=== PATIENT | male | born 1990 | race Caucasian/White ===

== ENCOUNTER → 2021-08-19 16:19 | Outpatient (BNVA) | payer MEDICAID, SELFPAY | PROVIDERS: PCP Nurse Practitioner Family; Visit Provider Nurse Practitioner Family | DX: S99.922A Unspecified injury of left foot, initial encounter (principal) | CPT/HCPCS: 73630 ==

== ENCOUNTER 2021-08-23 14:59 | Outpatient (CLI) | payer MEDICAID, SELFPAY | END 2021-08-23 15:00 | disposition home or self-care (01) | LOC: SPT 15:00 | PROVIDERS: PCP Nurse Practitioner Family; Visit Provider Podiatrist Foot & Ankle Surgery | DX: Z46.89 Encounter for fitting and adjustment of other specified devices (principal); S92.24 Fracture of medial cuneiform; X58.XXXS Exposure to other specified factors, sequela | CPT/HCPCS: L4361 ==

== ENCOUNTER 2021-08-26 14:59 | Outpatient (CLI) | payer MEDICAID, SELFPAY ==
--- NOTE | 2021-08-26 15:30 | CT_ITS ---
WS: [id number] NONCONTRAST CT LEFT FOOT TECHNIQUE: Noncontrast CT left foot with coronal and sagittal reformatted images. CLINICAL INFORMATION: FOOT FRACTURE COMPARISON: August 19, 2021 DLP: 759.[address] scans at [facility] use at least one of these dose optimization techniques: automated e xposure control; mA and/or kV adjustment per patient size (includes targeted exams where dose is matc hed to clinical indication); or iterative reconstruction. FINDINGS: Normal ankle mortise. Normal medial and lateral malleolus. Normal talar dome. Calcaneus is normal in appearance. Normal navicular. Normal cuboid. Base of the fifth metatarsal is normal. Comminuted fracture involving the medial cuneiform. Intra-articular extension with additional slightl y comminuted fracture involving the base of the second metatarsal. Intermediate and lateral cuneiform s appear intact. CT/CT foot LT wo con* [id number] IMPRESSION: 1. Comminuted fractures involving the medial cuneiform with intra-articular ex tension to the navicular and TMT joint. 2. Additional slightly comminuted fracture involving the base of the adjacent second metatarsal. 3. Intermediate and lateral cuneiforms appear intact. Base of the first metata rsal appears intact. 4. Normal ankle mortise. 5. Normal talonavicular articulation.
== END 2021-08-26 15:00 | disposition home or self-care (01) ==
PROVIDERS: PCP Nurse Practitioner Family; Visit Provider Podiatrist Foot & Ankle Surgery
DX: S92.242A Displaced fracture of medial cuneiform of left foot, initial encounter for closed fracture (principal); X58.XXXA Exposure to other specified factors, initial encounter
CPT/HCPCS: 73700

== ENCOUNTER → 2021-09-23 11:31 | Outpatient (BNVA) | payer MEDICAID, SELFPAY | PROVIDERS: PCP Nurse Practitioner Family; Visit Provider Podiatrist Foot & Ankle Surgery | DX: S92.242A Displaced fracture of medial cuneiform of left foot, initial encounter for closed fracture (principal); S92.245A Nondisplaced fracture of medial cuneiform of left foot, initial encounter for closed fracture; X58.XXXA Exposure to other specified factors, initial encounter | CPT/HCPCS: 73630 ==

== ENCOUNTER → 2021-10-16 13:29 | Outpatient (BNVA) | payer MEDICAID, SELFPAY | PROVIDERS: PCP Nurse Practitioner Family; Visit Provider Podiatrist Foot & Ankle Surgery | DX: M79.672 Pain in left foot (principal); M19.072 Primary osteoarthritis, left ankle and foot; S92.242A Displaced fracture of medial cuneiform of left foot, initial encounter for closed fracture; X58.XXXA Exposure to other specified factors, initial encounter | CPT/HCPCS: 73630 ==

== ENCOUNTER → 2021-11-04 11:07 | Outpatient (BNVA) | payer MEDICAID, SELFPAY | PROVIDERS: PCP Nurse Practitioner Family; Visit Provider Podiatrist Foot & Ankle Surgery | DX: S92.242A Displaced fracture of medial cuneiform of left foot, initial encounter for closed fracture (principal); S92.245A Nondisplaced fracture of medial cuneiform of left foot, initial encounter for closed fracture; X58.XXXA Exposure to other specified factors, initial encounter | CPT/HCPCS: 73630 ==

== ENCOUNTER → 2023-04-09 13:21 | Outpatient (BNVA) | payer MEDICAID, SELFPAY | PROVIDERS: Visit Provider Nurse Practitioner | DX: R04.2 Hemoptysis (principal) | CPT/HCPCS: 71046 ==

== ENCOUNTER → 2023-11-06 08:26 | Outpatient (BNVA) | payer MEDICAID, SELFPAY | PROVIDERS: Visit Provider Nurse Practitioner Family | DX: M25.571 Pain in right ankle and joints of right foot (principal); R05.9 Cough, unspecified | CPT/HCPCS: 71046; 73610 ==

== ENCOUNTER → 2024-11-01 14:51 | Outpatient (BNVA) | payer SELFPAY | PROVIDERS: Visit Provider Nurse Practitioner Family | DX: I10 Essential (primary) hypertension (principal); E55.9 Vitamin D deficiency, unspecified; Z79.899 Other long term (current) drug therapy; R74.8 Abnormal levels of other serum enzymes; R16.0 Hepatomegaly, not elsewhere classified | CPT/HCPCS: 80053; 80061; 81003; 82150; 82306; 83036; 83690; 84443; 85025; 85610 ==

== ENCOUNTER → 2024-11-18 11:42 | Outpatient (BNVA) | payer SELFPAY | PROVIDERS: Visit Provider Nurse Practitioner Family | DX: R79.89 Other specified abnormal findings of blood chemistry (principal) | CPT/HCPCS: 84439; 84443; 86376 ==

== ENCOUNTER → 2025-02-28 10:11 | Outpatient (BNVA) | payer SELFPAY | PROVIDERS: Visit Provider Nurse Practitioner Family | DX: R79.89 Other specified abnormal findings of blood chemistry (principal); R74.8 Abnormal levels of other serum enzymes; Z79.899 Other long term (current) drug therapy | CPT/HCPCS: 80053; 80061; 82150; 83690; 84443; 85025 ==

== ENCOUNTER 2025-03-24 08:59 | Outpatient (CLI) | payer SELFPAY ==
--- NOTE | 2025-03-24 09:00 | US_ITS ---
WS: [id number] Complete ABDOMINAL ULTRASOUND HISTORY: R16.0 - Hepatomegaly, not elsewhere classified COMPARISON: None available. Liver: 17.0 cm in length. Liver is top normal size. Coarse echotexture throughout the liver. No mass or intrahepatic duct dilatation. Portal Vein: Normal hepatopetal flow with monophasic waveform. Gallbladder: Normally distended gallbladder with no stones or wall thickening. CBD: 0.3 cm Pancreas: Not visualized. Right kidney: 12.8 cm x 6.8 x 6.6 cm. Cortex:1.2 cm. Normal size and echogenicity. No hydronephrosis or mass. Left kidney: 13.9 cm x 6.1 cm x 7.1 cm. Cortex: 1.4 cm. Normal size kidney. Benign cortical cyst superior renal cortex 1.3 x 1.1 x 1.1 cm. No obstruction. Spleen: 10.2 cm. Normal size and echogenicity. Aorta and IVC: Unremarkable abdominal aorta and IVC. US/US abdomen complete* [id number] Impression: 1. Negative gallbladder. 2. Mild hepatomegaly and hepatic steatosis. 3. No intrahepatic duct dilatation. 4. No renal obstruction. 5. Benign cortical LEFT renal cyst, 1.3 cm.
== END 2025-03-24 09:00 | disposition home or self-care (01) ==
PROVIDERS: PCP Nurse Practitioner Family; Visit Provider Nurse Practitioner Family
DX: R16.0 Hepatomegaly, not elsewhere classified (principal); R74.8 Abnormal levels of other serum enzymes; K76.0 Fatty (change of) liver, not elsewhere classified; N28.1 Cyst of kidney, acquired
CPT/HCPCS: 76700